=== PATIENT | female | born 1995 | race Caucasian/White ===

== ENCOUNTER 2020-10-15 23:54 | Emergency (ER) | payer OTHER ==
[~2020-10-15] VITALS: Ht 162.6 cm; Wt 81.1 kg
[2020-10-15 23:55] VITALS: BP 109/61
--- OUTSIDE RECORDS SUMMARY | 2020-10-16 00:02 | CCD ---
Author Author [facility] Organization [facility] Address Unknown Phone Unavailable Care Team Providers Care Grill Prep Cook Name Role Phone Jeevan, M Dana PA-C Unavailable Unavailable Jeevan, M Dana PA-C Unavailable Unavailable Jeevan, M Dana PA-C Unavailable Unavailable Jeevan, M Dana PA-C Unavailable Unavailable Jeevan, M Dana PA-C Unavailable Unavailable Jeevan, M Dana PA-C Unavailable Unavailable Jeevan, M Dana PA-C Unavailable Unavailable Jeevan, M Dana PA-C Unavailable Unavailable Jeevan, M Dana PA-C Unavailable Unavailable Jeevan, M Dana PA-C Unavailable Unavailable Jeevan, M Dana PA-C Unavailable Unavailable Jeevan, M Dana PA-C Unavailable Unavailable Jeevan, M Dana PA-C Unavailable Unavailable Jeevan, M Dana PA-C Unavailable Unavailable Jeevan, M Dana PA-C Unavailable Unavailable Jeevan, M Dana PA-C Unavailable Unavailable Jeevan, M Dana PA-C Unavailable Unavailable Jeevan, M Dana PA-C Unavailable Unavailable Jeevan, M Dana PA-C Unavailable Unavailable Jeevan, M Dana PA-C Unavailable Unavailable Jeevan, M Dana PA-C Unavailable Unavailable Jeevan, M Dana PA-C Unavailable Unavailable Jeevan, M Dana PA-C Unavailable Unavailable WHITTEN SR, AMMY MCFADDEN MD Unavailable Unavailable WHITTEN SR, AMMY MCFADDEN MD Unavailable Unavailable WHITTEN SR, AMMY MCFADDEN MD Unavailable Unavailable WHITTEN SR, AMMY MCFADDEN MD Unavailable Unavailable WHITTEN SR, AMMY MCFADDEN MD Unavailable Unavailable WHITTEN SR, AMMY MCFADDEN MD Unavailable Unavailable WHITTEN SR, AMMY MCFADDEN MD Unavailable Unavailable WHITTEN SR, AMMY MCFADDEN MD Unavailable Unavailable WHITTEN SR, AMMY MCFADDEN MD Unavailable Unavailable WHITTEN SR, AMMY MCFADDEN MD Unavailable Unavailable WHITTEN SR, AMMY MCFADDEN MD Unavailable Unavailable WHITTEN SR, AMMY MCFADDEN MD Unavailable Unavailable WHITTEN SR, AMMY MCFADDEN MD Unavailable Unavailable WHITTEN SR, AMMY MCFADDEN MD Unavailable Unavailable WHITTEN SR, AMMY MCFADDEN MD Unavailable Unavailable WHITTEN SR, AMMY MCFADDEN MD Unavailable Unavailable WHITTEN SR, AMMY MCFADDEN MD Unavailable Unavailable WHITTEN SR, AMMY MCFADDEN MD Unavailable Unavailable WHITTEN SR, AMMY MCFADDEN MD Unavailable Unavailable WHITTEN SR, AMMY MCFADDEN MD Unavailable Unavailable WHITTEN SR, AMMY MCFADDEN MD Unavailable Unavailable WHITTEN SR, AMMY MCFADDEN MD Unavailable Unavailable WHITTEN SR, AMMY MCFADDEN MD Unavailable Unavailable WHITTEN SR, AMMY MCFADDEN MD Unavailable Unavailable WHITTEN SR, AMMY MCFADDEN MD Unavailable Unavailable WHITTEN SR, AMMY MCFADDEN MD Unavailable Unavailable WHITTEN SR, AMMY MCFADDEN MD Unavailable Unavailable WHITTEN SR, AMMY MCFADDEN MD Unavailable Unavailable WHITTEN SR, AMMY MCFADDEN MD Unavailable Unavailable WHITTEN SR, AMMY MCFADDEN MD Unavailable Unavailable WHITTEN SR, AMMY MCFADDEN MD Unavailable Unavailable WHITTEN SR, AMMY MCFADDEN MD Unavailable Unavailable WHITTEN SR, AMMY MCFADDEN MD Unavailable Unavailable WHITTEN SR, AMMY MCFADDEN MD Unavailable Unavailable WHITTEN SR, AMMY MCFADDEN MD Unavailable Unavailable WHITTEN SR, AMMY MCFADDEN MD Unavailable Unavailable WHITTEN SR, AMMY MCFADDEN MD Unavailable Unavailable WHITTEN SR, AMMY MCFADDEN MD Unavailable Unavailable WHITTEN SR, AMMY MCFADDEN MD Unavailable Unavailable WHITTEN SR, AMMY MCFADDEN MD Unavailable Unavailable WHITTEN SR, AMMY MCFADDEN MD Unavailable Unavailable WHITTEN SR, AMMY MCFADDEN MD Unavailable Unavailable WHITTEN SR, AMMY MCFADDEN MD Unavailable Unavailable WHITTEN SR, AMMY MCFADDEN MD Unavailable Unavailable WHITTEN SR, AMMY MCFADDEN MD Unavailable Unavailable WHITTEN SR, AMMY MCFADDEN MD Unavailable Unavailable WHITTEN SR, AMMY MCFADDEN MD Unavailable Unavailable WHITTEN SR, AMMY MCFADDEN MD Unavailable Unavailable WHITTEN SR, AMMY MCFADDEN MD Unavailable Unavailable WHITTEN SR, AMMY MCFADDEN MD Unavailable Unavailable WHITTEN SR, AMMY MCFADDEN MD Unavailable Unavailable WHITTEN SR, AMMY MCFADDEN MD Unavailable Unavailable WHITTEN SR, AMMY MCFADDEN MD Unavailable Unavailable WHITTEN SR, AMMY MCFADDEN MD Unavailable Unavailable Re-disclosure Warning The records that you are about to access may contain information from federally-assisted alcohol or drug abuse programs. If such information is present, then the following federally mandated warning applies: This information has been disclosed to you from records protected by federal confidentiality rules (42 CFR part 2). The federal rules prohibit you from making any further disclosure of this information unless further disclosure is expressly permitted by the written consent of the person to whom it pertains or as otherwise permitted by 42 CFR part 2. A general authorization for the release of medical or other information is NOT sufficient for this purpose. The Federal rules restrict any use of the information to criminally investigate or prosecute any alcohol or drug abuse patient.The records that you are about to access may contain highly sensitive health information, the redisclosure of which is protected by Article 27-F of the [facility] Public Health law. If you continue you may have access to information: Regarding HIV / AIDS; Provided by facilities licensed or operated by the [facility] Office of Mental Health; or Provided by the [facility] Office for People With Developmental Disabilities. If such information is present, then the following [facility] mandated warning applies: This information has been disclosed to you from confidential records which are protected by state law. State law prohibits you from making any further disclosure of this information without the specific written consent of the person to whom it pertains, or as otherwise permitted by law. Any unauthorized further disclosure in violation of state law may result in a fine or senior living sentence or both. A general authorization for the release of medical or other information is NOT sufficient authorization for further disc losure. Family History Family Member Name Family Member Gender Family Member Status Date o f Status Description Data Source(s) Unknown Male Problem [facility]ENT ([facility]) Encounters Encounter Providers Location Date Indications Data Source(s ) Outpatient Attender: Dana Chew PA-C 12/11/2019 04:10 :00 PM [facility] Outpatient Attender: BOGDAN WHITTEN SR 12/11/2019 08:30:00 AM EDT [facility] 0 12:00:00 AM EDT eCW1 ([facility]) Insurance Providers Payer name Policy type / Coverage type Policy ID Covered republican ID Covered republican's relationship to redmond Policy [place] Plan Information [facility] [id number] FA2 [id number] [employer] [id number] S [id number] [employer] [id number] S [id number] [employer] [id number] S [id number] [employer] MEDICAID [id number] S [id number] [employer] [id number] S [id number] ANSI-Commercial [id number] [place] [id number] Commercial Insur ance Co. [id number] ANSI-Commercial [id number] ANSI-Commercial [id number] ANSI-Commercial [id number] [employer] [place] - [id number] 18 [id number] PRIVATE PAY CO UNAVAILABLE 18 UNAVAI LABLE Private Pay Commercial [id number] Self [id number] Private Pay Commercial [id number] Self [id number] N [employer] [id number] 19 [id number] N [employer]AL CLAIM[employer] EVER-PHYSICIAN [id number] 19 [id number] N [employer] [id number] 19 [id number] Problems, Conditions, and Diagnoses Code Display Name Description Problem Type Effective Dates Data Source(s) J00 Acute nasopharyngitis [common cold] ACUTE NASOPH ARYNGITIS [COMMON COLD] Diagnosis 12/11/2019 04:10:[address] [facility] R05 Cough COUGH Diagnosis 12/11/2019 08:30:[address] [facility] Results ID Date Data Source [id number] 06/20/2020 12:00:00 AM EDT [facility] Name Value Range Interpretation Code Description Data Chyna rce(s) Supporting Document(s) SARS coronavirus 2 RNA [Presence] in Res piratory specimen by AUGUSTIN with probe detection [facility] This lab was ordered by April Marshall and reported by [employer]. Procedure Vital Signs ID Date Data Source UNK Name Value Range Interpretation Code Description Data Source(s) Deprecated Oxygen saturation in Capillary blood by Oximetry 100 % 100 % eCW1 ([facility]) Respiratory rate 18 /min 18 /min eCW1 (Formerly named [facility]) Heart rate 87 /min 87 /min eCW1 (Formerly named [facility]) Body temperature 97.2 [degF] 97.2 [degF] eCW1 ( [facility]) Body mass index (BMI) [Ratio] 28.83 kg/m2 28.83 kg/m2 eCW1 ([facility]) Body height 64 [in_us] 64 [in_us] eCW1 ([facility])
[2020-10-16 02:29] LABS: BASO # 0.1 10^3/uL (0.0-0.2); BASO % 0.6 % (0.0-1.0); EOS % 0.5 % (0.0-3.0); HEMATOCRIT 39.7 % (36.0-47.0); HEMOGLOBIN 12.6 g/dl (12.0-15.5); LYMPH # 1.5 10^3/uL (1.5-5.0); LYMPH % 17.5 % (24.0-44.0); MEAN CORPUSCULAR HEMOGLOBIN 27.3 pg (27.0-33.0); MEAN CORPUSCULAR HGB CONC 31.7 g/dl (32.0-36.5); MEAN CORPUSCULAR VOLUME 86.1 fl (80.0-96.0); MONO # 0.5 10^3/uL (0.0-0.8); MONO % 6.5 % (0.0-5.0); NEUTROPHILS # 6.2 10^3/uL (1.5-8.5); NEUTROPHILS % 74.5 % (36.0-66.0); PLATELET COUNT, AUTOMATED 339 10^3/uL (150-450); RED BLOOD COUNT 4.61 10^6/uL (4.00-5.40); WHITE BLOOD COUNT 8.4 10^3/uL (4.0-10.0)
--- OUTSIDE RECORDS SUMMARY | 2020-10-16 02:36 | CCD ---
Author Author [facility] Organization [facility] Address Unknown Phone Unavailable Care Team Providers Care Periodicals Library Assistant Name Role Phone Jeevan, M Dana PA-C [...] M Dana PA-C Unavailable Unavailable Jeevan, M Adna PA-C Unavailable Unavailable Jeevan, M Dana PA-C [...] MCFADDEN MD Unavailable Unavailable WHITTEN SR, AMMY MFCADDEN MD Unavailable Unavailable WHITTEN SR, AMMY MCFADDEN [...] is protected by Article 27-F of the [facility] Public Health law. If you continue you may have access to information: Regarding HIV / AIDS; Provided by facilities licensed or operated by the [facility] Office of Mental Health; or Provided by the [facility] Office for People With Developmental Disabilities. If such information is present, then the following [facility] mandated warning applies: This information has been [...] law may result in a fine or chcf sentence or both. A general authorization for the release of medical or other information is NOT sufficient authorization for further disc losure. Family History Family Member Name Family Member Gender Family Member Status Date o f Status Description Data Source(s) Unknown Male Problem MEDENT ([facility]) Encounters Encounter Providers Location Date Indications Data Source(s ) Outpatient Attender: Dana Chew PA-C 12/11/2019 04:10 :00 PM [facility] Outpatient Attender: BGODAN WHITTEN SR 12/11/2019 08:30:00 AM EDT [facility] 0 12:00:00 AM EDT eCW1 ([facility]) Insurance Providers Payer name Policy type / Coverage type Policy ID Covered democrat ID Covered democrat's relationship to redmond Policy [place] Plan Information [facility] [id number] FA2 [id number] [employer] [id number] S [id number] [employer] [id number] S [id number] [employer]CIAL [id number] S [id number] [employer] MEDICAID [id number] S [id number] [employer] MEDICAID [id number] S [id number] ANSI-Commercial [id number] [place] [id number] Commercial Insur ance Co. [id number] ANSI-Commercial [id number] ANSI-Commercial [id number] ANSI-Commercial [id number] [employer] [place] - [id number] 18 [id number] PRIVATE PAY CO UNAVAILABLE 18 UNAVAI LABLE Private Pay Commercial [id number] Self [id number] Private Pay Commercial [id number] Self [id number] N [employer] [id number] 19 [id number] N REGIONAL CLAIMS EVER-PHYSICIAN [id number] 19 [id number] N [employer]AL CLAIM[employer] [id number] Problems, Conditions, and Diagnoses Code Display Name Description Problem Type Effective Dates Data Source(s) J00 Acute nasopharyngitis [common cold] ACUTE NASOPH ARYNGITIS [COMMON COLD] Diagnosis 12/11/2019 04:10:00 PM EDT [facility] R05 Cough COUGH Diagnosis 12/11/2019 08:30:00 AM ED T [facility] Results ID Date Data Source [id number] 06/20/2020 12:00:00 AM EDT [facility] Name Value Range Interpretation Code Description Data Chyna rce(s) Supporting Document(s) SARS coronavirus 2 RNA [Presence] in Res piratory specimen by AUGUSTIN with probe detection [facility] This lab was ordered by April Marshall and reported by [employer]. Procedure Vital Signs ID Date Data Source UNK Name Value Range Interpretation Code Description Data Source(s) Deprecated Oxygen saturation in Capillary blood by Oximetry 100 % 100 % eCW1 ([facility]) Respiratory rate 18 /min 18 /min eCW1 ([facility]note 2[facility] Heart rate 87 /min 87 /min eCW1 ([facility]) Body temperature 97.2 [degF] 97.2 [degF] eCW1 ( [facility]) Body mass index (BMI) [Ratio] 28.83 kg/m2 28.83 kg/m2 eCW1 ([facility]) Body height 64 [in_us] 64 [in_us] eCW1 ([facility])
== END 2020-10-16 03:27 | disposition home or self-care (01) ==
LOC: M ED 23:54
DX: Z32.01 Encounter for pregnancy test, result positive (principal)

== ENCOUNTER → 2021-09-29 | Outpatient (REF) | payer OTHER, MEDICAID ==
[~2021-09-29] MED LIST: ACET-907 PO; IRON27TA2 PO; TUMS500C PO
== END ==
LOC: M SFHCWAGY 19:16
PROVIDERS: ATTEND Obstetrics & Gynecology
DX: R87.612 Low grade squamous intraepithelial lesion on cytologic smear of cervix (LGSIL) (principal)

== ENCOUNTER → 2022-04-16 | Outpatient (REF) | payer OTHER, MEDICAID | LOC: M SFHCWAGY 12:55 | PROVIDERS: ATTEND Advanced Practice Midwife | DX: N87.1 Moderate cervical dysplasia (principal); Z12.4 Encounter for screening for malignant neoplasm of cervix; Z77.9 Other contact with and (suspected) exposures hazardous to health ==

== ENCOUNTER → 2022-07-05 | Outpatient (CLI) | payer MEDICAID, OTHER ==
[2022-07-05 13:59] LABS: HEMATOCRIT 38.8 % (36.0-47.0); HEMOGLOBIN 12.8 g/dl (12.0-15.5); MEAN CORPUSCULAR HEMOGLOBIN 27.7 pg (27.0-33.0); PLATELET COUNT, AUTOMATED 328 10^3/uL (150-450); RED BLOOD COUNT 4.62 10^6/uL (4.00-5.40); WHITE BLOOD COUNT 8.2 10^3/uL (4.0-10.0)
[2022-07-05 15:49] LABS: HEPATITIS B SURFACE ANTIGEN NEGATIVE (NEGATIVE); HEPATITIS C VIRUS ABY INDEX < 0.0 INDEX (<0.8); HIV 1&2 SCREEN CENTAUR NEGATIVE (NEGATIVE)
[2022-07-05 15:51] LABS: GC DNA AMPLIFICATION NEGATIVE (NEGATIVE)
== END ==
LOC: M PLALAB 11:27
PROVIDERS: ATTEND Obstetrics & Gynecology
DX: Z34.81 Encounter for supervision of other normal pregnancy, first trimester (principal)

== ENCOUNTER 2022-09-07 21:06 | Emergency (ER) | payer OTHER ==
[~2022-09-07] VITALS: Ht 162.6 cm; Wt 90.0 kg
[2022-09-08 00:50] VITALS: BP 107/63
== END 2022-09-08 04:25 | disposition left against medical advice (07) ==
LOC: M ED 21:06
DX: Z53.21 Procedure and treatment not carried out due to patient leaving prior to being seen by health care provider (principal)

== ENCOUNTER → 2022-09-24 | Outpatient (CLI) | payer OTHER | LOC: M WHC 11:44 | PROVIDERS: ATTEND Obstetrics & Gynecology | DX: Z34.92 Encounter for supervision of normal pregnancy, unspecified, second trimester (principal); Z3A.21 21 weeks gestation of pregnancy ==

== ENCOUNTER → 2022-11-18 | Outpatient (CLI) | payer OTHER | LOC: M WHC 10:06 | PROVIDERS: ATTEND Advanced Practice Midwife | DX: Z34.93 Encounter for supervision of normal pregnancy, unspecified, third trimester (principal); Z3A.29 29 weeks gestation of pregnancy; Z36.2 Encounter for other antenatal screening follow-up ==

== ENCOUNTER → 2022-11-18 | Outpatient (CLI) | payer OTHER ==
[2022-11-18 14:05] LABS: HEMOGLOBIN 9.5 g/dl (12.0-15.5); MEAN CORPUSCULAR HEMOGLOBIN 27.1 pg (27.0-33.0); MEAN CORPUSCULAR HGB CONC 31.7 g/dl (32.0-36.5); MEAN CORPUSCULAR VOLUME 85.7 fl (80.0-96.0); PLATELET COUNT, AUTOMATED 248 10^3/uL (150-450); WHITE BLOOD COUNT 9.3 10^3/uL (4.0-10.0)
[2022-11-18 15:42] LABS: GC DNA AMPLIFICATION NEGATIVE (NEGATIVE)
== END ==
LOC: M PLALAB 10:03
PROVIDERS: ATTEND Advanced Practice Midwife
DX: Z34.93 Encounter for supervision of normal pregnancy, unspecified, third trimester (principal)

== ENCOUNTER → 2022-12-17 | Outpatient (CLI) | payer OTHER | LOC: M LAB 07:34 | PROVIDERS: ATTEND Advanced Practice Midwife | DX: O99.810 Abnormal glucose complicating pregnancy (principal); Z3A.00 Weeks of gestation of pregnancy not specified ==

== ENCOUNTER → 2022-12-23 | Outpatient (CLI) | payer OTHER | LOC: M WHC 15:11 | PROVIDERS: ATTEND Obstetrics & Gynecology | DX: O99.013 Anemia complicating pregnancy, third trimester (principal); Z3A.34 34 weeks gestation of pregnancy; Z36.2 Encounter for other antenatal screening follow-up; D64.9 Anemia, unspecified ==

== ENCOUNTER → 2022-12-31 | Outpatient (REF) | payer OTHER | LOC: M PLALAB 07:40 | PROVIDERS: ATTEND Advanced Practice Midwife | DX: Z3A.36 36 weeks gestation of pregnancy (principal) ==

== ENCOUNTER 2023-01-18 18:13 | Outpatient (CLI) | payer OTHER ==
[~2023-01-18] VITALS: Ht 162.6 cm; Wt 96.3 kg
[2023-01-18 18:34] VITALS: BP 122/64
[2023-01-18] MEDS ORDERED: FERR325T3 PO (18:36)
[2023-01-18] MEDS ORDERED: HOME MED LIST COMPLETE! XX SCH (18:40)
[2023-01-18 19:25] VITALS: BP 116/64
== END 2023-01-18 19:45 | disposition home or self-care (01) ==
LOC: M LDO 18:13
PROVIDERS: ATTEND Obstetrics & Gynecology
DX: O26.893 Other specified pregnancy related conditions, third trimester (principal); M54.50 Low back pain, unspecified; O24.419 Gestational diabetes mellitus in pregnancy, unspecified control; Z3A.38 38 weeks gestation of pregnancy
CPT/HCPCS: 59025; G0463

== ENCOUNTER 2023-01-22 10:03 | Inpatient (IN) | payer OTHER ==
[~2023-01-22] VITALS: Ht 162.6 cm; Wt 95.0 kg
[2023-01-22] VITALS (33 sets, daily range): BP systolic 92–118; BP diastolic 50–74
[~2023-01-22 10:03] MED LIST changes: +FERR325T3 PO
[2023-01-22] MEDS ORDERED: ACET160S3 PO (10:25)
[2023-01-22] MEDS ORDERED: ACET-907 PO (10:27)
[2023-01-22] MEDS ORDERED: HOME MED LIST COMPLETE! XX SCH (10:30)
[2023-01-22 11:32] LABS: HEMATOCRIT 32.5 % (36.0-47.0); HEMOGLOBIN 10.2 g/dl (12.0-15.5); MEAN CORPUSCULAR HEMOGLOBIN 24.5 pg (27.0-33.0); MEAN CORPUSCULAR HGB CONC 31.4 g/dl (32.0-36.5); MEAN CORPUSCULAR VOLUME 78.1 fl (80.0-96.0); PLATELET COUNT, AUTOMATED 272 10^3/uL (150-450); RED BLOOD COUNT 4.16 10^6/uL (4.00-5.40); WHITE BLOOD COUNT 8.3 10^3/uL (4.0-10.0)
[2023-01-22] MEDS ORDERED: LACTATED RINGER'S 1000 ML IV STA (12:04)
[2023-01-22] MEDS ORDERED: LIDOCAINE 1% MDV 20ML VIAL INFIL PRN (12:05)
[2023-01-22] MEDS ORDERED: CARBOPROST TROMETHAMINE 250 MCG/ML AMP IM PRN (12:05)
[2023-01-22] MEDS ORDERED: METHYLERGONOVINE MALEATE 0.2MG/ML 1ML VIAL IM PRN (12:05)
[2023-01-22] MEDS ORDERED: TRANEXAMIC ACID INJection 1,000 MG in NS 100 ML IV PRN (12:05)
[2023-01-22] MEDS ORDERED: OXYTOCIN DRIP 30 UNITS in IV 1 EA IV PRN (12:05)
[2023-01-22] MEDS ORDERED: OXYTOCIN DRIP 30 UNITS in IV 1 EA IV SCH (12:15)
[2023-01-22] MEDS: LR 1,000 ML IV SCH ×3 (12:22→19:33)
[2023-01-22] MEDS ORDERED: EPIDURAL/PCA KEYS XX PRN (18:00)
[2023-01-22] MEDS ORDERED: NALOXONE INJ 0.4MG/1ML VIAL IV PRN (18:00)
[2023-01-22] MEDS ORDERED: diphenhydrAMINE 50MG/ML VIAL IV PRN (18:00)
[2023-01-22] MEDS ORDERED: ONDANSETRON 4MG 2ML VIAL IV PRN (18:00)
[2023-01-22] MEDS ORDERED: ePHEDrine SULFATE 25 MG/5 ML(5MG/ML) SYRINGE IVP PRN (18:00)
[2023-01-22] MEDS ORDERED: FENTANYL/ROPIVACAINE/NACL BAG 100 ML EPIDURAL SCH (18:00)
[2023-01-22] MEDS ORDERED: LR 500 ML IV PRN (18:00)
[2023-01-23] VITALS (8 sets, daily range): BP systolic 101–119; BP diastolic 57–74
[2023-01-23] MEDS ORDERED: ONDANSETRON 4MG 2ML VIAL IV PRN (00:50)
[2023-01-23] MEDS ORDERED: OXYTOCIN DRIP 30 UNITS in IV 1 EA IV SCH (00:50)
[2023-01-23] MEDS ORDERED: RHOGAM 300MCG (1500IU) INJ IM SCH (00:50)
[2023-01-23] MEDS ORDERED: IBUPROFEN 600MG TAB PO PRN (00:50)
[2023-01-23] MEDS ORDERED: IBUPROFEN 800 MG TAB PO PRN (00:50)
[2023-01-23] MEDS ORDERED: DOCUSATE SODIUM 100MG CAPSULE PO PRN (00:50)
[2023-01-23] MEDS: LR 1,000 ML IV SCH ×2 (00:50→08:50)
[2023-01-23] MEDS ORDERED: DIBUCAINE 1% OINTMENT 30GM TOP PRN (00:50)
[2023-01-23] MEDS ORDERED: ANUSOL HC CREAM 30GM TOP PRN (00:50)
[2023-01-23] MEDS ORDERED: METHYLERGONOVINE MALEATE 0.2 MG TAB PO PRN (00:50)
[2023-01-23] MEDS ORDERED: ACETAMINOPHEN TAB 650MG DOSE (2X325MG) PO PRN (00:50)
[2023-01-23] MEDS: PRENATAL VITAMINS CHEWABLE TABLET PO SCH (08:03)
[2023-01-23] MEDS: ACETAMINOPHEN 500 MG TAB PO PRN (18:04)
[2023-01-24 06:00] VITALS: BP 116/71
[2023-01-24] MEDS: PRENATAL VITAMINS CHEWABLE TABLET PO SCH (08:13)
[2023-01-24] MEDS: ACETAMINOPHEN 500 MG TAB PO PRN (12:14)
[2023-01-24] MEDS ORDERED: ACET-683 PO (12:34)
[2023-01-24] MEDS ORDERED: IBUP80TA PO (12:34)
[2023-01-25] MEDS ORDERED: MEASLES,MUMPS,RUBELLA VACCINE INJ (MMR-II) SC.IMMUN ONE (09:00)
== END 2023-01-24 14:15 | disposition home or self-care (01) | DRG 560 ==
LOC: M LDI 10:03 → M OBS 01-23 03:24
PROVIDERS: ADMIT Obstetrics & Gynecology; ATTEND Obstetrics & Gynecology
PROC: 10E0XZZ Delivery of Products of Conception, External Approach (ICD-10-PCS; principal; 2023-01-23)
PROC: 0KQM0ZZ Repair Perineum Muscle, Open Approach (ICD-10-PCS; 2023-01-23)
DX: O24.420 Gestational diabetes mellitus in childbirth, diet controlled (principal); O70.1 Second degree perineal laceration during delivery; Z37.0 Single live birth; Z3A.39 39 weeks gestation of pregnancy

== ENCOUNTER → 2023-08-23 | Outpatient (REF) | payer OTHER ==
[~2023-08-23] MED LIST changes: +ACET-683 PO; +ACET160S3 PO; +IBUP80TA PO
== END ==
LOC: M SFHCWAGY 17:31
PROVIDERS: ATTEND Obstetrics & Gynecology
DX: Z12.4 Encounter for screening for malignant neoplasm of cervix (principal)

== ENCOUNTER → 2024-04-11 | Outpatient (RCR) | payer OTHER | LOC: M PT 03-21 10:45 | PROVIDERS: ATTEND Pediatrics | DX: M54.41 Lumbago with sciatica, right side (principal) ==

== ENCOUNTER 2024-04-13 11:00 | Outpatient (RCR) | payer OTHER | END 2024-05-12 | LOC: M PT 11:00 | PROVIDERS: ATTEND Pediatrics | DX: M54.41 Lumbago with sciatica, right side (principal) ==

== ENCOUNTER → 2024-05-16 | Outpatient (REF) | payer OTHER ==
[2024-05-16 17:08] LABS: PERCENT SATURATION 11.8 % (13.2-45.0)
[2024-05-16 17:12] LABS: THYROID STIMULATING HORMONE 1.084 uIU/ML (0.55-4.78)
[2024-05-16 17:13] LABS: BASO % 0.4 % (0.0-1.0); EOS % 0.6 % (0.0-3.0); HEMATOCRIT 40.7 % (36.0-47.0); HEMOGLOBIN 13.3 g/dl (12.0-15.5); LYMPH # 1.8 10^3/uL (1.5-5.0); MEAN CORPUSCULAR HEMOGLOBIN 27.8 pg (27.0-33.0); MEAN CORPUSCULAR HGB CONC 32.7 g/dl (32.0-36.5); MEAN CORPUSCULAR VOLUME 85.1 fl (80.0-96.0); MONO # 0.6 10^3/uL (0.0-0.8); MONO % 7.8 % (2.0-8.0); NEUTROPHILS # 4.6 10^3/uL (1.5-8.5); NEUTROPHILS % 64.6 % (36.0-66.0); PLATELET COUNT, AUTOMATED 344 10^3/uL (150-450); RED BLOOD COUNT 4.78 10^6/uL (4.00-5.40); WHITE BLOOD COUNT 7.1 10^3/uL (4.0-10.0)
[2024-05-16 17:19] LABS: HEMOGLOBIN A1c 4.8 % (4.0-6.0)
== END ==
LOC: M LAB REF 16:36
PROVIDERS: ATTEND Pediatrics
DX: Z68.33 Body mass index [BMI] 33.0-33.9, adult (principal); E66.9 Obesity, unspecified; D64.9 Anemia, unspecified

== ENCOUNTER → 2025-03-21 | Outpatient (CLI) | payer OTHER ==
[2025-03-21 16:33] LABS: PLATELET COUNT, AUTOMATED 316 10^3/uL (150-450)
[2025-03-21 16:56] LABS: LDH LACTATE DEHYDROGENASE 158 U/L (120-246)
[2025-03-21 16:57] LABS: ALT/SGPT 15 U/L (7.0-40); AST/SGOT 14 U/L (<34); CREATININE FOR GFR 0.55 MG/DL (0.55-1.30); GLOMERULAR FILTRATION RATE > 90.0 (>60); GLUCOSE CHALLENGE TEST 1 HOUR 88 MG/DL (LESS THAN 140)
[2025-03-21 17:19] LABS: ESTIMATED AVERAGE GLUCOSE 91.0 MG/DL (60-110)
[2025-03-21 17:24] LABS: HIV 1&2 SCREEN NEGATIVE (NEGATIVE)
[2025-03-21 17:31] LABS: TOTAL PROTEIN,RANDOM URINE 17.9 MG/DL (0.0-14.0)
[2025-03-21 17:32] LABS: HEPATITIS C VIRUS ABY INDEX 0.09 INDEX (<0.8)
[2025-03-21 18:14] LABS: Trichomonas vaginalis (AMP) NOT DETECTED (NEGATIVE)
[2025-03-21 18:38] LABS: GC DNA AMPLIFICATION NEGATIVE (NEGATIVE)
== END ==
LOC: M PLALAB 13:35
PROVIDERS: ATTEND Nurse Practitioner Family
DX: Z34.81 Encounter for supervision of other normal pregnancy, first trimester (principal)

== ENCOUNTER → 2025-04-05 | Outpatient (CLI) | payer OTHER | LOC: M PLALAB 11:20 | PROVIDERS: ATTEND Nurse Practitioner Family | DX: Z34.81 Encounter for supervision of other normal pregnancy, first trimester (principal) ==

== ENCOUNTER → 2025-06-07 | Outpatient (CLI) | payer OTHER | LOC: M WHC 14:25 | PROVIDERS: ATTEND Advanced Practice Midwife | DX: Z34.82 Encounter for supervision of other normal pregnancy, second trimester (principal); Z3A.19 19 weeks gestation of pregnancy ==

== ENCOUNTER → 2025-07-19 | Outpatient (CLI) | payer OTHER | LOC: M WHC 11:55 | PROVIDERS: ATTEND Obstetrics & Gynecology | DX: Z34.82 Encounter for supervision of other normal pregnancy, second trimester (principal); Z3A.20 20 weeks gestation of pregnancy ==

== ENCOUNTER → 2025-07-30 | Outpatient (CLI) | payer OTHER ==
[2025-07-30 14:00] LABS: PLATELET COUNT, AUTOMATED 244 10^3/uL (150-450)
[2025-07-30 14:23] LABS: ESTIMATED AVERAGE GLUCOSE 85.0 MG/DL (60-110); GLUCOSE CHALLENGE TEST 1 HOUR 131 MG/DL (LESS THAN 140)
[2025-07-30 14:59] LABS: Trichomonas vaginalis (AMP) NOT DETECTED (NEGATIVE)
[2025-07-30 15:04] LABS: HIV 1&2 SCREEN NEGATIVE (NEGATIVE)
[2025-07-30 15:14] LABS: HEPATITIS C VIRUS ABY INDEX < 0.02 INDEX (<0.8)
[2025-07-30 15:23] LABS: GC DNA AMPLIFICATION NEGATIVE (NEGATIVE)
== END ==
LOC: M PLALAB 10:55
PROVIDERS: ATTEND Obstetrics & Gynecology
DX: Z34.92 Encounter for supervision of normal pregnancy, unspecified, second trimester (principal)